=== PATIENT | male | born 1940 | race Caucasian/White ===

== ENCOUNTER 2020-08-11 20:40 | Emergency (ER) | payer MEDICARE, OTHER ==
[~2020-08-11 20:40] MED LIST: ASPIRIN EC81 MG PO; BACTRIM DS TAB1 EACH PO; CARVEDILOL3.125 MG PO; CRESTOR5 MG PO; FINASTERIDE5 MG PO; FLOMAX 0.4 MG0.4 MG PO; FUROSEMIDE40 MG PO; IBU400 MG PO; LEVEMIR100 UNIT/1 SQ; LISINOPRIL10 MG PO; LISINOPRIL20 MG PO; NEXIUM40 MG PO; SODIUM POL15 GM/601 CO; TAMSULOSIN HCL0.4 MG PO
[2020-08-11 22:36] LABS: HEMOGLOBIN 11.4 gm/dl (14.0-17.5); RED BLOOD COUNT 4.25 M/UL (4.20-5.50); WHITE BLOOD COUNT 6.7 K/UL (4.5-11.0)
[2020-08-12] MEDS ORDERED: CEFDINIR300 MG PO (00:45)
[2020-08-12] MEDS ORDERED: LASIX20 MG PO (00:45)
[2020-08-12] MEDS ORDERED: ZITHROMAX250 MG PO (00:45)
== END 2020-08-12 01:18 | disposition left against medical advice (07) ==
LOC: ER1 20:40
PROVIDERS: Physician Assistant
DX: J18.9 Pneumonia, unspecified organism (principal); I50.9 Heart failure, unspecified; I11.0 Hypertensive heart disease with heart failure; Z20.822 Contact with and (suspected) exposure to COVID-19; E11.9 Type 2 diabetes mellitus without complications; E78.5 Hyperlipidemia, unspecified; F17.210 Nicotine dependence, cigarettes, uncomplicated; Z79.82 Long term (current) use of aspirin; Z79.899 Other long term (current) drug therapy
CPT/HCPCS: 0240U; 36600; 71045; 80053; 82550; 82553; 82803; 83605; 83874; 83880; 84484; 85025; 87040; 93005; 94760; 96374; 96375; 99285; J0456; J0696; J1940; J7030

== ENCOUNTER 2020-11-25 14:55 | Emergency (ER) | payer MEDICARE, OTHER ==
[~2020-11-25 14:55] MED LIST changes: +CEFDINIR300 MG PO; +LASIX20 MG PO; +ZITHROMAX250 MG PO
[2020-11-25 16:20] LABS: RED BLOOD COUNT 4.43 M/UL (4.20-5.50); WHITE BLOOD COUNT 6.6 K/UL (4.5-11.0)
== END 2020-11-25 17:30 | disposition left against medical advice (07) ==
LOC: ER1 14:55
PROVIDERS: Physician Assistant
DX: R06.02 Shortness of breath (principal); R60.0 Localized edema; I11.0 Hypertensive heart disease with heart failure; I50.9 Heart failure, unspecified
CPT/HCPCS: 71045; 80053; 82550; 82553; 83874; 83880; 84484; 85025; 93005; 99285

== ENCOUNTER 2021-04-12 16:24 | Inpatient (IN) | payer MEDICARE, OTHER ==
[~2021-04-12] VITALS: Ht 175.3 cm; Wt 73.7 kg
[2021-04-12 20:08] LABS: HEMOGLOBIN 9.3 gm/dl (14.0-17.5); RED BLOOD COUNT 4.03 M/UL (4.20-5.50); WHITE BLOOD COUNT 5.8 K/UL (4.5-11.0)
[2021-04-13 04:14] LABS: HEMOGLOBIN 9.2 gm/dl (14.0-17.5); RED BLOOD COUNT 4.01 M/UL (4.20-5.50)
[2021-04-13 04:18] LABS: WHITE BLOOD COUNT 7.4 K/UL (4.5-11.0)
[2021-04-13] MEDS ORDERED: LASIX40 MG PO (10:53)
[2021-04-13] MEDS ORDERED: TRIPLE ANTIBIO1 EACH TP (10:54)
[2021-04-13] MEDS ORDERED: ASPIRIN EC81 MG PO (10:54)
[2021-04-13] MEDS ORDERED: NEXIUM40 MG PO (11:52)
== END 2021-04-14 16:30 | DRG 682 ==
LOC: PROG CARE 18:00
PROVIDERS: Internal Medicine Cardiovascular Disease; ADMIT Internal Medicine
PROC: B24BZZZ Ultrasonography of Heart with Aorta (ICD-10-PCS; principal; 2021-04-13)
DX: N17.9 Acute kidney failure, unspecified (principal); I50.23 Acute on chronic systolic (congestive) heart failure; I13.0 Hypertensive heart and chronic kidney disease with heart failure and stage 1 through stage 4 chronic kidney disease, or unspecified chronic kidney disease; N30.00 Acute cystitis without hematuria; N18.32 Chronic kidney disease, stage 3b; Z66 Do not resuscitate; Z51.5 Encounter for palliative care; I27.20 Pulmonary hypertension, unspecified; D53.9 Nutritional anemia, unspecified; E11.22 Type 2 diabetes mellitus with diabetic chronic kidney disease; N40.1 Benign prostatic hyperplasia with lower urinary tract symptoms; H91.90 Unspecified hearing loss, unspecified ear; I44.0 Atrioventricular block, first degree; R63.6 Underweight; K40.90 Unilateral inguinal hernia, without obstruction or gangrene, not specified as recurrent; R33.8 Other retention of urine; E03.9 Hypothyroidism, unspecified; I25.10 Atherosclerotic heart disease of native coronary artery without angina pectoris; N28.1 Cyst of kidney, acquired; E88.09 Other disorders of plasma-protein metabolism, not elsewhere classified; I48.91 Unspecified atrial fibrillation; Z79.4 Long term (current) use of insulin; Z79.82 Long term (current) use of aspirin; Z79.899 Other long term (current) drug therapy; Z68.23 Body mass index [BMI] 23.0-23.9, adult; Z95.1 Presence of aortocoronary bypass graft; Z83.3 Family history of diabetes mellitus; Z91.81 History of falling
CPT/HCPCS: ECHO; 36415; 80048; 80053; 81001; 82728; 82962; 83036; 83540; 83550; 83735; 83880; 85027; 87077; 87086; 87186; 93306; J0696